=== PATIENT | male | born 1965 | race African-American/Black ===

== ENCOUNTER → 2017-01-20 | Outpatient (CLI) | payer BC ==
--- NOTE | 2017-01-20 11:44 | XR ---
EXAM TYPE: LUMBAR SPINE X RAY SERIES COMPARISON: 03/01/2016 HISTORY: Low back pain TECHNIQUE: 4 views are submitted. FINDINGS: Alignment is anatomic. The pedicles are intact. The transverse processes are intact. There is no s pondylolysis or spondylolisthesis. Degenerative change L4-L5. Degenerative change T12-L1. IMPRESSION: 1. Degenerative changes T12-L1 and L4-L5..
== END | disposition home or self-care (01) ==
LOC: RADXRMAIN 11:05
PROVIDERS: ATTEND Family Medicine
DX: M47.815 Spondylosis without myelopathy or radiculopathy, thoracolumbar region (principal)
CPT/HCPCS: 72110

== ENCOUNTER → 2018-09-07 | Outpatient (CLI) | payer BC ==
--- NOTE | 2018-09-07 15:46 | XR ---
Cervical spine HISTORY: Neck pain 4 views of the cervical spine Cervical vertebral bodies show preserved height. There is loss of normal cervical lordosis. Disc spac es are maintained. C7-T1 is not well seen. Vertebral body alignment and bone mineralization are maint ained. Sclerosis in the posterior elements suggests facet arthropathy. IMPRESSION: Loss of lordosis can be seen with muscle spasm. Suspect some facet arthropathy. MRI may b e of benefit.
== END | disposition home or self-care (01) ==
LOC: RADXRMAIN 14:31
PROVIDERS: ATTEND Family Medicine
DX: M54.2 Cervicalgia (principal)
CPT/HCPCS: 72040

== ENCOUNTER → 2019-06-17 | Outpatient (CLI) | payer BC ==
--- NOTE | 2019-06-17 13:45 | XR ---
Lumbar spine HISTORY: Low back pain 3 views lumbar spine Lumbar vertebral bodies show preserved height, alignment, and bone mineralization. Disc spaces are st able, mildly reduced L3-4 and L4-5, and T12-L1. Sclerosis in the posterior elements of the lower lumb ar spine compatible with facet arthropathy mild spondylosis present L4-5 and L3-4, T12-L1. IMPRESSION: Degenerative disc disease and facet arthropathy
== END | disposition home or self-care (01) ==
LOC: RADXRMAIN 09:52
PROVIDERS: ATTEND Family Medicine
DX: M51.36 Other intervertebral disc degeneration, lumbar region (principal); M46.96 Unspecified inflammatory spondylopathy, lumbar region
CPT/HCPCS: 72100

== ENCOUNTER 2021-12-04 15:59 | Emergency (ER) | payer BC ==
[2021-12-04 16:21] VITALS: BP 136/90; PULSE 94; RESP 16; TEMP 98.9
[2021-12-04] MEDS ORDERED: SODIUM CHLORIDE 0.9% 1,000 ML IV STA (16:44)
[2021-12-04] MEDS ORDERED: HYDROmorphone 1 MG/ML 1 ML SYRINGE IVP STA (16:45)
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
[2021-12-04 17:33] LABS: Basophils % (A) 0 %; Eosinophils # (A) 0.2 k/uL (0-0.7); Eosinophils % (A) 2 %; Lymphocytes # (A) 0.6 k/uL (1.0-4.8); Lymphocytes % (A) 6 %; MCH 29.4 pg (25.0-35.0); MCV 91.9 fL (80.0-100.0); Mean Platelet Volume 7.2; Monocytes # (A) 0.4 k/uL (0-1.0); Monocytes % (A) 4 %; Neutrophils # (A) 8.7 k/uL (1.3-7.7); Neutrophils % (A) 86 %; Platelet Count 269 k/uL (150-450); RBC 5.44 m/uL (4.30-5.90); WBC 10.1 k/uL (3.8-10.6)
[2021-12-04 17:43] LABS: ALT 56 U/L (4-49); AST 34 U/L (17-59); African American GFR (CKD) >90 (>60 ml/min/1.73 sqM); Albumin 4.5 g/dL (3.5-5.0); Alkaline Phosphatase 84 U/L (38-126); Amylase 91 U/L (30-110); Anion Gap 7 mmol/L; Blood Urea Nitrogen 11 mg/dL (9-20); Calcium 10.3 mg/dL (8.4-10.2); Carbon Dioxide 25 mmol/L (22-30); Chloride 103 mmol/L (98-107); Glucose 123 mg/dL (74-99); Lipase 28 U/L (23-300); Non-African American GFR(CKD) 79 (>60 ml/min/1.73 sqM); Potassium 4.2 mmol/L (3.5-5.1); Sodium 135 mmol/L (137-145); Total Bilirubin 0.7 mg/dL (0.2-1.3); Total Protein 7.6 g/dL (6.3-8.2)
[2021-12-04 17:54] LABS: INR 2.7 (<1.2); Partial Thromboplastin Time 35.6 sec (22.0-30.0); Prothrombin Time 26.6 sec (9.0-12.0)
--- NOTE | 2021-12-04 18:54 | CT ---
EXAMINATION TYPE: CT abdomen pelvis w con DATE OF EXAM: 12/04/2021 COMPARISON: None HISTORY: Abodminal pain CT DLP: 1732.7 mGycm Automated exposure control for dose reduction was used. CONTRAST: Performed with IV Contrast, patient injected with 100 mL of Isovue 300. Images obtained from the diaphragm to the floor the pelvis with IV contrast. There is some mild atelectasis at the lung bases. No pleural effusion. Heart size is normal. No peric ardial effusion. There are clips from cholecystectomy. Liver and spleen are intact. The bile ducts are not dilated. Th ere is no pancreatic mass. Stomach is intact. There is no adrenal mass. Kidneys show satisfactory contrast opacification. There is no hydronephrosi s. There is no retroperitoneal adenopathy. Ureters are not dilated. Bladder distends smoothly. There is no inguinal hernia. Appendix is posterior and appears normal. There is some fat stranding around the proximal sigmoid colon and the lower descending colon with margareth e minimal fluid in the paracolic gutter. There are multiple sigmoid diverticula. The lumbar vertebrae have normal alignment. There is narrowing at L4-5 disc space with vacuum disc. N o compression fracture. Facet joints are intact. The bony pelvis is intact. Hip joints are intact. IMPRESSION: There is diverticulitis of the proximal sigmoid colon.
[2021-12-04] MEDS ORDERED: MORPHINE SULFATE 4 MG/ML SYRINGE IVP STA (19:05)
[2021-12-04] MEDS ORDERED: AMOXIC-POT CLAV 875MG STARTER PACK 2 TAB BTL PO STA (19:06)
[2021-12-04] MEDS ORDERED: ACET/COD 300 MG/30 MG STARTER PACK 6 TAB BTL PO STA (19:10)
== END 2021-12-04 20:33 | disposition home or self-care (01) ==
LOC: EC 15:59
DX: K57.32 Diverticulitis of large intestine without perforation or abscess without bleeding (principal); J45.909 Unspecified asthma, uncomplicated; K21.9 Gastro-esophageal reflux disease without esophagitis; I10 Essential (primary) hypertension; Z79.83 Long term (current) use of bisphosphonates; Z91.048 Other nonmedicinal substance allergy status
CPT/HCPCS: 36415; 80053; 82150; 83690; 85025; 85610; 85730; 74177; 99284; 96374; 96375; 96361; J1170; Q9967

== ENCOUNTER → 2022-12-09 | Outpatient (CLI) | payer BC ==
--- NOTE | 2022-12-09 15:43 | XR ---
EXAMINATION TYPE: XR lumbar spine 3V DATE OF EXAM: 12/09/2022 Comparison: 06/17/2019 Clinical History: 57-year-old male M54.50 Findings: 5 lumbar type vertebral bodies. Facet arthropathy lower lumbar spine. Mild to moderate degenerative d isc disease L4-L5. Also T12-L1. Mild elsewhere throughout the lumbar spine. Vertebral body heights ar e preserved and alignment is maintained. Changes show some progression from 2019. Impression: Mild multilevel degenerative disc disease, mild to moderate at L4-L5, slightly progressed from 2019. Facet arthropathy lower lumbar spine. No vertebral compression collapse or malalignment.
== END | disposition home or self-care (01) ==
LOC: RADXRMAIN 14:02
PROVIDERS: ATTEND Family Medicine
DX: M51.36 Other intervertebral disc degeneration, lumbar region (principal); M47.816 Spondylosis without myelopathy or radiculopathy, lumbar region
CPT/HCPCS: 72100

== ENCOUNTER 2023-06-07 14:14 | Observation (INO) | payer BC ==
[2023-06-07 15:05] LABS: Basophils % (A) 1 %; Eosinophils # (A) 0.2 k/uL (0-0.7); Eosinophils % (A) 5 %; HCT 46.8 % (39.0-53.0); HGB 15.5 gm/dL (13.0-17.5); Lymphocytes # (A) 1.1 k/uL (1.0-4.8); Lymphocytes % (A) 23 %; MCHC 33.2 g/dL (31.0-37.0); MCV 90.4 fL (80.0-100.0); Mean Platelet Volume 7.1; Monocytes # (A) 0.4 k/uL (0-1.0); Monocytes % (A) 7 %; Neutrophils # (A) 2.9 k/uL (1.3-7.7); Neutrophils % (A) 60 %; Platelet Count 329 k/uL (150-450); RBC 5.18 m/uL (4.30-5.90); RDW 13.4 % (11.5-15.5); WBC 4.8 k/uL (3.8-10.6)
[2023-06-07 15:20] LABS: Partial Thromboplastin Time 27.2 sec (22.0-30.0); Prothrombin Time 11.3 sec (10.0-12.5)
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
[2023-06-07 15:22] LABS: Ionized Calcium 5.5 mg/dL (4.5-5.3)
[2023-06-07 15:31] LABS: ALT 46 U/L (4-49); AST 39 U/L (17-59); African American GFR (CKD) >90 (>60 ml/min/1.73 sqM); Albumin 4.2 g/dL (3.5-5.0); Alkaline Phosphatase 79 U/L (38-126); Anion Gap 9 mmol/L; Blood Urea Nitrogen 16 mg/dL (9-20); Calcium 10.3 mg/dL (8.4-10.2); Carbon Dioxide 25 mmol/L (22-30); Chloride 103 mmol/L (98-107); Glucose 112 mg/dL (74-99); Non-African American GFR(CKD) >90 (>60 ml/min/1.73 sqM); Potassium 4.5 mmol/L (3.5-5.1); Sodium 137 mmol/L (137-145); Total Bilirubin 0.5 mg/dL (0.2-1.3); Total Protein 7.2 g/dL (6.3-8.2)
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
[2023-06-07] MEDS ORDERED: HYDROmorphone 0.5 MG/0.5 ML SYRINGE IVP PRN (16:38)
[2023-06-07] MEDS ORDERED: NALOXONE 0.4 MG/ML 1 ML VIAL IV PRN (16:38)
[2023-06-07] MEDS ORDERED: ONDANSETRON 4 MG/2 ML VIAL IVP PRN (16:38)
[2023-06-07] MEDS: SODIUM CHLORIDE 0.9% 1,000 ML IV SCH (17:29)
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
[2023-06-07 18:06] LABS: Appearance,Urine Clear (Clear); Color,Urine Yellow; Protein,Urine Negative (Negative); Specific Gravity,Urine 1.015 (1.001-1.035)
[2023-06-07 18:07] LABS: Bilirubin,Urine Negative (Negative); Blood,Urine Negative (Negative); Glucose,Urine (UA) Negative (Negative); Ketones,Urine Negative (Negative); Leukocyte Esterase,Urine Negative (Negative); Nitrite,Urine Negative (Negative); Urobilinogen,Urine <2.0 mg/dL (<2.0)
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
[2023-06-07] MEDS: HYDROcodone/APAP 5-325MG 1 EACH TAB PO PRN (19:13)
[2023-06-07] MEDS: TAMSULOSIN 0.4 MG CAP.ER.24H PO SCH (19:13)
[2023-06-07] MEDS ORDERED: PARoxetine 20 MG TAB PO SCH (21:00)
[2023-06-08] MEDS: SODIUM CHLORIDE 0.9% 1,000 ML IV SCH ×2 (04:15→14:14)
[2023-06-08] MEDS: HYDROcodone/APAP 5-325MG 1 EACH TAB PO PRN (05:41)
[2023-06-08 08:13] VITALS: RESP 16
[2023-06-08] MEDS: TAMSULOSIN 0.4 MG CAP.ER.24H PO SCH (08:44)
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
[2023-06-08] MEDS ORDERED: amLODIPine 5 MG TAB PO SCH (09:00)
[2023-06-08] MEDS ORDERED: DULoxetine HCL 30 MG CAPSULE.DR PO SCH (09:00)
[2023-06-08] MEDS ORDERED: LORATADINE 10 MG TAB PO SCH (09:00)
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
[2023-06-08] MEDS ORDERED: predniSONE 20 MG TAB PO SCH (13:30)
[2023-06-08] MEDS ORDERED: ARTIFICIAL TEARS-HYPROMELLOSE DROPS 15 ML BTL RIGHT EYE SCH (13:30)
[2023-06-08 14:15] VITALS: BP 138/67; PULSE 86; TEMP 98
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
== END 2023-06-08 16:53 | disposition home or self-care (01) ==
LOC: EC 14:14 → 6NMEDSUR 17:21
PROVIDERS: ADMIT Family Medicine; ATTEND Family Medicine
DX: G51.0 Bell's palsy (principal); T75.4XXA Electrocution, initial encounter; W86.8XXA Exposure to other electric current, initial encounter; I10 Essential (primary) hypertension; F11.20 Opioid dependence, uncomplicated; G47.30 Sleep apnea, unspecified; K21.9 Gastro-esophageal reflux disease without esophagitis; G43.909 Migraine, unspecified, not intractable, without status migrainosus; G89.29 Other chronic pain; M51.16 Intervertebral disc disorders with radiculopathy, lumbar region; J45.909 Unspecified asthma, uncomplicated; F32.A Depression, unspecified; F41.9 Anxiety disorder, unspecified; R94.31 Abnormal electrocardiogram [ECG] [EKG]; R20.2 Paresthesia of skin; R20.0 Anesthesia of skin; Z79.82 Long term (current) use of aspirin; Z79.899 Other long term (current) drug therapy; Z91.048 Other nonmedicinal substance allergy status; Z90.49 Acquired absence of other specified parts of digestive tract; Z98.890 Other specified postprocedural states; Z82.49 Family history of ischemic heart disease and other diseases of the circulatory system; Z80.1 Family history of malignant neoplasm of trachea, bronchus and lung
CPT/HCPCS: 96374; 96361; 99285; 36415; 93005; 80053; 82330; 83735; 84484; 85025; 85610; 85730; 81003; 70496; 70450; 70498; G0378 ×2; J7512; J1170; Q9967

== ENCOUNTER → 2023-06-09 | Outpatient (CLI) | payer BC ==
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
== END | disposition home or self-care (01) ==
LOC: RADMRIMAIN 15:58
PROVIDERS: ATTEND Family Medicine
DX: I67.82 Cerebral ischemia (principal); R90.82 White matter disease, unspecified; J32.2 Chronic ethmoidal sinusitis; G51.0 Bell's palsy
CPT/HCPCS: 70551

== ENCOUNTER 2024-12-12 12:52 | Day surgery (SDC) | payer BC ==
[2024-12-12 13:37] VITALS: TEMP 97.7
[2024-12-12] MEDS: LACTATED RINGERS 1,000 ML IV SCH (13:45)
[2024-12-12] MEDS: IV FLUID CONTINUATION 1,000 ML IV ONE (13:45)
[2024-12-12] MEDS ORDERED: PROPOFOL 10 MG/ML 20 ML VIAL IV ONE (14:47)
--- NOTE | 2024-12-12 14:50 | P.GSHP ---
History of Present Illness H&P Date: 12/12/24 Chief Complaint: Colon cancer screening 59-year-old male here for colonoscopy. Last colonoscopy 11 years ago. Patient had 2 small polyps 1 was an adenoma. No bowel complaints. No family history of colon cancer. Past Medical History Past Medical History: Asthma, Chest Pain / Angina, GERD/Reflux, Hypertension, Osteoarthritis (OA), Sleep Apnea/CPAP/BIPAP Additional Past Medical History / Comment(s): CHRONIC PAIN LT LOWER BACK-BULGING DISCS. LUMBAR DDD, USES BITE SPLINT FOR SLEEP APNEA ONLY, MIGRAINES, HX CHEST PAIN/ANGINA-LAST TIME 08/11/14 History of Any Multi-Drug Resistant Organisms: None Reported Past Surgical History: Cholecystectomy, Heart Catheterization, Orthopedic Surgery Additional Past Surgical History / Comment(s): colonoscopy,PAIN PROC, AURA ARTHROSCOPIC KNEE X2 EACH KNEE, HEART CATH 08/27/14. Past Anesthesia/Blood Transfusion Reactions: Motion Sickness, Postoperative Nausea & Vomiting (PONV) Smoking Status: Never smoker - Past Family History Father Family Medical History: Hypertension, Myocardial Infarction (ME) Additional Family Medical History / Comment(s): LIVER TUMOR BUT FROM ME @ AGE 69 Mother Family Medical History: Hypertension Brother(s) Family Medical History: Cancer Additional Family Medical History / Comment(s): lung Medications and Allergies Home Medications Medication Instructions Recorded Confirmed Type DULoxetine HCL [Cymbalta] 30 mg PO DAILY 06/07/23 12/11/24 History HYDROcodone/APAP 5-325MG [[place] 1 tab PO QID PRN 06/07/23 12/11/24 History 5-325] Sildenafil Citrate [Viagra] 100 mg PO DAILY PRN 06/07/23 12/11/24 History Tamsulosin HCl [Flomax] 0.4 mg PO DAILY 06/07/23 12/11/24 History Albuterol Inhaler [Ventolin Hfa 1 - 2 puff INHALATION DIRECTED 12/11/24 12/11/24 History Inhaler] PRN Cariprazine HCl [Vraylar] 3 mg PO HS 12/11/24 12/11/24 History Ibuprofen [Motrin] 1,600 mg PO DIRECTED PRN 12/11/24 12/11/24 History Losartan Potassium 100 mg PO DAILY 12/11/24 12/11/24 History Multi Vitamin 1 tab PO DAILY 12/11/24 12/11/24 History Zolpidem [Ambien] 10 mg PO HS 12/11/24 12/11/24 History buPROPion XL [Wellbutrin XL] 150 mg PO DAILY 12/11/24 12/11/24 History Allergies Allergy/AdvReac Type Severity Reaction Status Date / Time RAGWEED Allergy ITCHY Uncoded 12/12/24 13:34 EYES,SINUS SYMPTOMS Surgical - Exam Vital Signs Temp Pulse Resp BP Pulse Ox 97.7 F 78 16 145/94 99 12/12/24 13:34 12/12/24 13:34 12/12/24 13:34 12/12/24 13:34 12/12/24 13:34 Physical exam: General: Well-developed, well-nourished HEENT: Normocephalic, sclerae nonicteric Abdomen: Nontender, nondistended Extremities: No edema Neuro: Alert and oriented Assessment and Plan (1) Colon cancer screening Narrative/Plan: Will proceed with colonoscopy at this time. Current Visit: Yes Status: Acute Code(s): Z12.11 - ENCOUNTER FOR SCREENING FOR MALIGNANT NEOPLASM OF COLON SNOMED Code(s): 043886472
--- NOTE | 2024-12-12 15:06 | P.PCN ---
Date of Procedure: 12/12/24 Procedure(s) Performed: PREOPERATIVE DIAGNOSIS: Colon cancer screening POSTOPERATIVE DIAGNOSIS: Prominent ileocecal valve, diverticulosis PROCEDURE: Colonoscopy ANESTHESIA: MAC SURGEON: Gonzalo Connors M.D. SPECIMENS: Ileocecal valve ENDOSCOPIC PROCEDURE: The patient was placed on the endoscopy table in the left decubitus position. The Olympus colonoscope was inserted into the anus and passed under direct visualization to the base of the cecum. The appendiceal orifice was visualized. From that point the scope was slowly withdrawn inspecting all surfaces carefully. There were no neoplastic inflammatory or polypoid lesions throughout the base of the cecum. At the valve itself there was some prominence and I question whether there may be an adjacent polyp to the valve. A biopsy was taken. The remainder of the ascending transverse descending sigmoid and rectum was normal. The patient had mild scattered diverticulosis. Digital rectal examination was normal. The patient was taken to the recovery room in stable condition per anesthesia guidelines. RECOMMENDATIONS: Await biopsy results. Will contact patient with timing for next colonoscopy.
[2024-12-12 15:34] VITALS: BP 115/73; PULSE 68; RESP 16
== END 2024-12-12 15:48 | disposition home or self-care (01) ==
LOC: ORWHC2ENDO 12:52
PROVIDERS: ATTEND Surgery
DX: Z12.11 Encounter for screening for malignant neoplasm of colon (principal); K57.30 Diverticulosis of large intestine without perforation or abscess without bleeding; G47.30 Sleep apnea, unspecified; I10 Essential (primary) hypertension; J45.909 Unspecified asthma, uncomplicated
CPT/HCPCS: 45380; J2704; 88305